=== PATIENT | female | born 2000 | race Caucasian/White ===

== ENCOUNTER 2022-03-31 02:39 | Emergency (ER) | payer OTHER ==
[2022-03-31] MEDS ORDERED: ACETAMINOPHEN 325 MG TABLET (FP) PO ONE (03:27)
[2022-03-31 03:32] VITALS: BP 144/78; PULSE 85; TEMP 98.6; BMI 27.0
== END 2022-03-31 05:05 | disposition home or self-care (01) ==
LOC: JER 02:39
DX: M25.531 Pain in right wrist (principal); V49.40XA Driver injured in collision with unspecified motor vehicles in traffic accident, initial encounter
CPT/HCPCS: 73110-TC-RT-FY; 73130-TC-RT-FY; 99283-25